=== PATIENT | male | born 1935 | race Hispanic/Latino ===

== ENCOUNTER 2025-01-30 02:26 | Emergency (ER) | payer SELFPAY ==
[2025-01-30] MEDS ORDERED: AMIODARONE HCL 150 MG/3 ML INJ IV ONE (02:33)
[2025-01-30] MEDS ORDERED: EPINEPHrine 1 MG/10 ML SYR IV ONE (02:33)
[2025-01-30] MEDS ORDERED: Calcium Chloride 10% INJ SYR IV ONE (02:33)
--- NOTE | 2025-01-30 03:10 | EDPHYS ---
Physician Documentation [facility] Name: Oliver Schaeffer Age: 89 yrs Sex: Male : 1935 Arrival Date: 01/30/2025 Time: 02:32 Bed 3 Private MD: ED Physician Rupert Myers HPI: 01/30 03:05 This 89 yrs old Male presents to ER via Unassigned with complaints of CPR. sp3 03:05 89-year-old male with history of asthma presents via EMS for CPR in progress as a sp3 witnessed arrest. Patient was at home and reportedly started having difficulty breathing and then collapsed. EMS found patient in full arrest initiated standard ACLS and obtained ROSC briefly before patient arrested again. Patient presents to the ED and asystole/PEA with Ernst CPR device active. They administered 3 rounds of epinephrine with last epinephrine approximately 9 minutes prior to arrival. Please see MDM for continued notes. ROS, history and physical all limited secondary to CPR in progress. Patient was intubated in the field with tube at 22 cm at the teeth.. ROS: 03:06 Unable to obtain ROS due to patient is on ventilator, CPR, sp3 Exam: 03:06 Unable to obtain exam due to patient being intubated, CPR. sp3 MDM: 02:57 Medical Screening Exam initiated sp3 03:07 Data reviewed: vital signs, nurses notes, EMS record. ED course: Please also see CODE sp3 BLUE sheet for exact timing of medications. Multiple rounds of CPR and epinephrine/bicarb/calcium given including amiodarone for refractory ventricular fibrillation which patient achieved several times with no response to shocks given. Discussed with patient's family while CPR was still in progress. They expressed that the unreasonable efforts patient did not want extended resuscitation efforts. Family was brought into the room during last phases of resuscitation. No cardiac activity on ultrasound noted and patient was either in asystole or refractory fine V-fib. Given no cardiac activity, fixed and dilated pupils and absent reflexes, resuscitation efforts were stopped at 0252.. Administered Medications: No medications were administered Disposition: 03:09 . sp3 Disposition Summary: 01/30/25 03:10 Patient Notes: Location: Home sp3 Pronouncing Physician: Rupert Myers sp3 Time of : 02:52 01/30/2025 sp3 Diagnosis - Cardiac arrest witnessed, CPR sp3 Signatures: Rupert Myers MD MD sp3 Corrections: (The following items were deleted from the chart) 03:11 03:05 89-year-old male with history of asthma presents via EMS for CPR in progress as a sp3 witnessed arrest. Patient was at home and reportedly started having difficulty breathing and then collapsed. EMS found patient in full arrest initiated standard ACLS and obtained ROSC briefly before patient arrested again. Patient presents to the ED and asystole/PEA with Ernst CPR device active. They administered 3 rounds of epinephrine with last epinephrine approximately 9 minutes prior to arrival. Please see MDM for continued notes. ROS, history and physical all limited secondary to CPR in progress.. sp3
--- NOTE | 2025-01-30 06:32 | ER ---
Nurse's Notes [facility] Name: Oliver Schaeffer Age: 89 yrs Sex: Male : 1935 Arrival Date: 01/30/2025 Time: 02:32 Bed 3 Private MD: Diagnosis: Cardiac arrest witnessed, CPR Presentation: 01/30 02:32 Chief complaint: EMS states: family called for asthma exacerbation. pt lost pulse 3 nh2 mins before EMS arrived. Patient down 19 mins, ROSC was achieved for 11 mins when patient went PEA again. 02:32 Care prior to arrival: Assisted ventilation, CPR via thumper performed by EMS and is nh2 still in progress Medication(s) given: 3 amps of EPI IV initiated. Right Tibia IO Oxygen administered. via AMBU bag. Compressions began prior to arrival. 02:32 Method Of Arrival: EMS: [facility] nh2 02:32 Acuity: TAHMINA 1 nh2 03:56 Risk Assessment: Do you want to hurt yourself or someone else?. kl Triage Assessment: 05:25 General: Appears. cp4 Screenin:25 [facility] Fall Risk Assessment (Adult) Altered Elimination. cp4 05:28 [facility] Fall Risk Assessment (Adult) Confusion or Disorientation. cp4 Assessment: 02:32 CPR assessment: unresponsive, pupils fixed \T\ dilated, no respiratory effort, intubated, nh2 Ambu ventilation, pale, pulses present w/ compressions. Cardiac rhythm is asystole. General: Behavior is unresponsive. Neuro: Level of Consciousness is unresponsive. Cardiovascular: Rhythm is asystole. Respiratory: oxygen administered with Ambu bag. Derm: Skin is pale. 02:32 Reassessment: Pt arrived via [facility] with thumper in place. nh2 02:39 Reassessment: Thumper removed, no pulse present upon pulse check. CPR resumed via nh2 manual compressions. 02:41 Reassessment: CPR continued via manual compressions. nh2 02:42 Reassessment: PEA upon pulse check. nh2 02:43 Reassessment: CPR continued via manual compressions. nh2 02:44 Reassessment: PEA upon pulse check. nh2 02:45 Reassessment: CPR continued via manual compressions. nh2 02:48 Reassessment: Rate showing V-fib on monitor. Shocked with 200 J. Asystole on monitor. nh2 02:49 Reassessment: Resumed compressions. nh2 02:50 Reassessment: V-Fib on monitor, shocked with 200 J. Asystole on monitor. nh2 02:51 Reassessment: Compressions continued. nh2 02:52 Reassessment: Asystole on monitor. Time of called by Dr. Louis MD at 0252. nh2 ED Course: 02:35 Arm band placed on right wrist. Patient placed in an exam room, on a stretcher. cp4 02:46 Patient arrived in ED. gm2 02:52 No provider procedures requiring assistance completed. cp4 02:57 Rupert Myers MD is Attending Physician. sp3 03:04 Claudia Nixon is Primary Nurse. cp4 03:10 Rupert Myers MD is Pronouncing Provider. sp3 03:11 [employer] [place] [facility] called to notify Practice [employer]. rv1 03:49 Triage completed. nh2 Administered Medications: No medications were administered Outcome: 02:52 Outcome Patient nh2 02:52 Patient : Time of 02:52 Pronounced by Rupert Myers MD 02:52 Condition: 06:31 Patient left the ED. cp4 Signatures: Katerin Dyer RN RN kl Rupert Myers MD MD sp3 Celia Montano rv1 Claudia Nixon cp4 Anabela Berger gm2 Antoni Merida Jr RN RN nh2 Corrections: (The following items were deleted from the chart) 03:49 03:23 Chief complaint: cp4 nh2 03:56 02:32 Reassessment: Pt arrived via [facility] with thumper in plac nh2 nh2 03:57 02:39 Reassessment: Thumper removed, CPR resumed via manual compressions nh2 nh2 04:01 02:45 Reassessment: CPR continued via manual compressions Reassessment: CPR continued nh2 via manual compressions nh2
== END 2025-01-30 06:31 | disposition expired ==
LOC: ER 02:32
DX: I46.9 Cardiac arrest, cause unspecified (principal)
CPT/HCPCS: 92950; 99285; J0169; J0282